=== PATIENT | female | born 2000 | race Caucasian/White ===

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

== ENCOUNTER → 2018-08-17 16:59 | Outpatient (CLI) | payer OTHER, SELFPAY ==
[2018-08-17 09:19] VITALS: BMI 33.3
[2018-08-17 19:59] LABS: Chlamydia Trachomatis by PCR Negative (Negative); Neisserai gonorrhoeae by PCR Negative (Negative); Probe Check PASS; Sample Adequacy Control PASS; Specimen Processing Control PASS
== END ==
PROVIDERS: Family Provider Preventive Medicine Occupational Medicine; PCP Preventive Medicine Occupational Medicine; Referring Provider Nurse Practitioner Women's Health; Visit Provider Nurse Practitioner Women's Health
DX: A64 Unspecified sexually transmitted disease (principal)
CPT/HCPCS: 87491; 87591

== ENCOUNTER → 2019-02-08 | Outpatient (CLI) | payer OTHER, SELFPAY ==
[2019-02-08 15:26] VITALS: BMI 33.3
[2019-02-08 18:50] LABS: Chlamydia Trachomatis by PCR Negative (Negative); Neisserai gonorrhoeae by PCR Negative (Negative); Probe Check PASS; Sample Adequacy Control PASS; Specimen Processing Control PASS
== END | disposition home or self-care (01) ==
LOC: LABSPEC 16:50
PROVIDERS: Family Provider Preventive Medicine Occupational Medicine; PCP Preventive Medicine Occupational Medicine; Referring Provider Nurse Practitioner Women's Health; Visit Provider Nurse Practitioner Women's Health
DX: R10.2 Pelvic and perineal pain (principal)
CPT/HCPCS: 87070; 87205; 87491; 87591

== ENCOUNTER → 2019-03-03 | Outpatient (CLI) | payer OTHER, SELFPAY ==
[2019-02-08 15:26] VITALS: BMI 33.3
--- NOTE | 2019-03-03 13:07 | US_ITS ---
HISTORY: Pelvic pain. Transabdominal and endovaginal imaging. LMP 02/28/2019. 57 transabdominal images, 60 to endovaginal images. No comparison imaging. Findings: Transabdominal imaging: The urinary bladder is somewhat decompressed. The uterus measures 7.8 x 4.1 x 5.7 cm. Myometrium is fairly homogeneous. Endometrial stripe is normal in thickness at 5 mm. No large masses or fluid collections. The left ovary measures 2.6 x 2.1 x 1.6 cm. Color Doppler imaging demonstrates focal left ovarian parenchyma. Pulse Doppler imaging suggesting arterial flow left ovarian parenchyma transabdominally. The right ovary measures 4.2 x 2.7 x 4.3 cm. Follicles are present on the right ovary. Color Doppler imaging is suggestive of possible flow to right ovarian parenchyma. Elsewhere Doppler imaging suggests arterial flow to right ovarian parenchyma. The urinary bladder is adequately distended. Endovaginal imaging: Myometrium is homogeneous. The cervix is closed. The endometrial stripe is measured at 8 mm The left ovary is again demonstrated. Follicles in the left ovary again demonstrated. Color Doppler imaging again suggest possible flow to the left ovary but is nondiagnostic. The right ovary is again demonstrated. Follicles on the right ovary are again demonstrated. Color and pulse wave Doppler imaging again suggests arterial flow to right ovarian parenchyma. US/Transvaginal Non- IMPRESSION: Normal. at 2220 Reported and signed by: Hernán Ocasio MD Electronically Signed: Hernán Ocasio MD at 22:24 EDT Tel , Service support ,
--- NOTE | 2019-03-03 13:07 | US_ITS ---
HISTORY: Pelvic pain. Transabdominal and endovaginal imaging. LMP 02/28/2019. 57 transabdominal images, 60 to endovaginal images. No comparison imaging. Findings: Transabdominal imaging: The urinary bladder is somewhat decompressed. The uterus measures 7.8 x 4.1 x 5.7 cm. Myometrium is fairly homogeneous. Endometrial stripe is normal in thickness at 5 mm. No large masses or fluid collections. The left ovary measures 2.6 x 2.1 x 1.6 cm. Color Doppler imaging demonstrates focal left ovarian parenchyma. Pulse Doppler imaging suggesting arterial flow left ovarian parenchyma transabdominally. The right ovary measures 4.2 x 2.7 x 4.3 cm. Follicles are present on the right ovary. Color Doppler imaging is suggestive of possible flow to right ovarian parenchyma. Elsewhere Doppler imaging suggests arterial flow to right ovarian parenchyma. The urinary bladder is adequately distended. Endovaginal imaging: Myometrium is homogeneous. The cervix is closed. The endometrial stripe is measured at 8 mm The left ovary is again demonstrated. Follicles in the left ovary again demonstrated. Color Doppler imaging again suggest possible flow to the left ovary but is nondiagnostic. The right ovary is again demonstrated. Follicles on the right ovary are again demonstrated. Color and pulse wave Doppler imaging again suggests arterial flow to right ovarian parenchyma. US/Pelvic (Non ) IMPRESSION: Normal. at 0497 Reported and signed by: Hernán Ocasio MD Electronically Signed: Hernán Ocasio MD at 22:24 EDT Tel , Service support ,
== END | disposition home or self-care (01) ==
LOC: OPUS 13:05
PROVIDERS: Referring Provider Nurse Practitioner Women's Health; Visit Provider Nurse Practitioner Women's Health
DX: R10.2 Pelvic and perineal pain (principal)
CPT/HCPCS: 76830; 76856; 93976